=== PATIENT | male | born 1985 | race Caucasian/White ===

== ENCOUNTER 2017-06-29 14:47 | Emergency (ER) | payer BC, OTHER ==
[2017-06-29 15:04] VITALS: BMI 26.6
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
[2017-06-29] MEDS ORDERED: CEFAZOLIN (PRE-DOCKED) 1 GM in DEXTROSE 5%-WATER - 50 ML IVPB ONE (15:42)
[2017-06-29] MEDS ORDERED: DIPHTH,PERTUSS(ACELL),TET 0.5 ML DISP.SYRIN IM ONE (15:42)
[2017-06-29] MEDS ORDERED: SODIUM CHLORIDE 1,000 ML IV SCH (15:45)
[2017-06-29] MEDS ORDERED: CEFAZOLIN (PRE-DOCKED) 50 ML IVPB ONE (15:52)
[2017-06-29 16:19] LABS: BASOPHIL 0.5 % (0-2.0); EOSINOPHIL 0.7 % (0-4.5); MCH 30.8 pg (25.7-33.7); MCHC 34.9 g/dl (32.0-35.9); MEAN CELL VOLUME 88.4 fl (80-96); MEAN PLT VOLUME 8.3 fl (7.5-11.1); NEUTROPHILS 82.2 % (42.8-82.8); PLATELET COUNT 177 K/MM3 (134-434); RDW 13.6 % (11.9-15.9); WHITE BLOOD COUNT 13.5 K/mm3 (4.0-10.0)
[2017-06-29 16:32] LABS: INR 1.12 (0.82-1.09); PROTHROMBIN TIME (PATIENT) 12.4 SEC (9.98-11.88)
[2017-06-29 16:34] LABS: ACTIVATED PTT 31.7 SECONDS (26.9-34.4)
[2017-06-29 16:47] LABS: ALBUMIN 4.6 g/dl (3.4-5.0); ANION GAP 9 (8-16); CO2 28 mmol/L (21-32); CREATININE 1.1 mg/dL (0.7-1.3); GLUCOSE,RANDOM 98 mg/dL (74-106); SGOT/AST 27 U/L (15-37); SGPT/ALT 30 U/L (12-78); TOT PROT 7.3 g/dl (6.4-8.2)
[2017-06-29 16:48] LABS: ALK PHOS 70 U/L (45-117)
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
[2017-06-29 22:04] VITALS: BP 122/78; PULSE 98; TEMP 97.8
== END 2017-06-29 22:04 | disposition short-term general hospital (02) ==
LOC: JER 14:47
PROC: 0CQ0XZZ Repair Upper Lip, External Approach (ICD-10-PCS; principal; 2017-06-29)
PROC: 3E03329 Introduction of Other Anti-infective into Peripheral Vein, Percutaneous Approach (ICD-10-PCS; 2017-06-29)
PROC: 3E0337Z Introduction of Electrolytic and Water Balance Substance into Peripheral Vein, Percutaneous Approach (ICD-10-PCS; 2017-06-29)
PROC: 3E0234Z Introduction of Serum, Toxoid and Vaccine into Muscle, Percutaneous Approach (ICD-10-PCS; 2017-06-29)
DX: S01.511A Laceration without foreign body of lip, initial encounter (principal); S09.12XA Laceration of muscle and tendon of head, initial encounter; V17.0XXA Pedal cycle driver injured in collision with fixed or stationary object in nontraffic accident, initial encounter; Y93.55 Activity, bike riding; Y92.89 Other specified places as the place of occurrence of the external cause
CPT/HCPCS: 36415; 70450-TC; 71010-TC; 72125-TC; 72128-TC; 80053; 85025; 85610; 85730; 90715; 99284-25